=== PATIENT | male | born 1995 | race Caucasian/White ===

== ENCOUNTER 2017-07-10 11:01 | Emergency (ER) | payer OTHER ==
[~2017-07-10] VITALS: Ht 165.1 cm; Wt 69.0 kg
[2017-07-10] MEDS ORDERED: ACETAMINOPHEN 500 MG TABLET PO ONE (11:30)
[2017-07-10] MEDS ORDERED: SODIUM CHLORIDE 0.9% 1,000 ML IV ONE (11:45)
[2017-07-10 12:10] VITALS: BP 124/79
[2017-07-10] MEDS ORDERED: PENICILLIN G BENZATHINE LA 1,200,000 UNITS/2 ML SYRINGE IM ONE (12:30)
[2017-07-10] MEDS ORDERED: DEXAMETHASONE SOD PHOS 4 MG/ML 5 ML VIAL IM ONE (12:30)
== END 2017-07-10 13:51 | disposition home or self-care (01) ==
LOC: EMS 11:03
DX: J02.0 Streptococcal pharyngitis (principal); R51 Headache
CPT/HCPCS: 87430; 96360; 96372; 99284; J0561; J1100; J7030